=== PATIENT | male | born 1990 | race Caucasian/White ===

== ENCOUNTER 2019-11-09 13:35 | Outpatient (CLI) | payer MEDICAID, SELFPAY ==
[2019-11-09 14:50] LABS: Basophils # 0.1 10^3/uL (0.0-0.1); Basophils % 0.7 %; Eosinophils # 0.1 10^3/uL (0.0-0.8); Eosinophils % 1.4 %; Hematocrit 50.3 % (42.0-52.0); Hemoglobin 16.4 g/dL (11.7-16.6); Lymphocytes # 2.5 10^3/uL (0.8-4.8); Lymphocytes % 27.3 %; Mean Corpuscular HGB Conc 32.6 g/dL (30.0-36.0); Mean Corpuscular Hemoglobin 29.9 pg (28.0-34.0); Mean Corpuscular Volume 91.6 fL (80-94); Mean Platelet Volume 9.9 fL (7.4-10.4); Monocytes # 0.7 10^3/uL (0.2-0.9); Neutrophils # 5.6 10^3/uL (1.8-7.7); Neutrophils % 62.3 %; Nucleated Red Blood Cells % 0 %; Platelet Count 277 10^3/cmm (130-400); Red Blood Count 5.49 10^6/uL (4.1-5.3); Red Cell Distribution Width 12.2 % (12.1-15.1)
[2019-11-09 15:10] LABS: Amphetamines Screen Urine Negative (Negative); Barbiturates Screen Urine Negative (Negative); Benzodiazepines Screen Urine Negative (Negative); Cocaine Screen Urine Negative (Negative); Opiate Screen Urine Negative (Negative); PCP Screen Urine Negative (Negative); THC Screen Urine Positive (Negative)
[2019-11-09 15:37] LABS: Alanine Aminotransferase 22 U/L (0-41); Albumin Level 4.7 g/dL (3.5-5.2); Alkaline Phosphatase 109 IU/L (40-130); Anion Gap 16.2 (5-19); Aspartate Amino Transferase 22 U/L (0-40); Blood Urea Nitrogen 14 mg/dL (6-20); Calcium 10.4 mg/dL (8.5-10.5); Carbon Dioxide 27 mmol/L (22-29); Chloride 99 mmol/L (98-107); Chol HDL Ratio 3.29 mg/dL (1.0-5.00); Cholesterol 148 mg/dL (0-200); Globulin 3.4 g/dL (1.3-4.6); Glomerular Filtration Rate 78.6 mL/min (90-130); Glucose 72 mg/dL (65-115); HDL Cholesterol 45 mg/dL (60-100); LDL Cholesterol Calculated 83 mg/dL (50-129); LDL HDL Ratio 1.84 RATIO (0.00-3.22); Magnesium 2.2 mg/dL (1.7-2.3); Osmolality Calculated 281 mOsm/kg (285-295); Potassium 4.2 mmol/L (3.5-5.1); Sodium 138 mmol/L (136-145); Thyroid Stimulating Hormone 4.04 uIU/mL (0.27-4.20); Total Bilirubin 0.4 mg/dL (0.15-1.2); Total Protein 8.1 g/dL (6.6-8.7); Triglycerides 99 mg/dL (0-150); Vitamin B12 329 pg/mL (232-1245)
[2019-11-09 15:48] LABS: Folate Level 11.2 ng/mL (4.5-32.2)
[2019-11-09 16:07] LABS: 25 Hydroxy Vitamin D 75 ng/mL (30-100); Free T4 Free Thyroxine 1.15 ng/dL (0.82-1.77); T3 Free 3.7 PG/ML (2.0-4.4)
[2019-11-11 20:27] LABS: Copper Level 126 mcg/dL (70-175); Zinc Level, Serum or Plasma 73 mcg/dL (60-130)
== END 2019-11-09 13:36 | disposition home or self-care (01) ==
LOC: LAB 13:48
PROVIDERS: Visit Provider Psychiatry & Neurology Psychiatry
DX: E63.9 Nutritional deficiency, unspecified (principal); F06.30 Mood disorder due to known physiological condition, unspecified; F31.62 Bipolar disorder, current episode mixed, moderate; F41.1 Generalized anxiety disorder; F43.0 Acute stress reaction; G40.909 Epilepsy, unspecified, not intractable, without status epilepticus; S09.90XS Unspecified injury of head, sequela; X58.XXXS Exposure to other specified factors, sequela
CPT/HCPCS: 36415; 80053; 80061; 80306; 82306; 82525; 82607; 82746; 83735; 84439; 84443; 84481; 84630; 85025; 99205

== ENCOUNTER → 2019-11-23 08:02 | Outpatient (BNVA) | payer MEDICAID, SELFPAY | PROVIDERS: Visit Provider Nurse Practitioner Psychiatric/Mental Health | DX: F06.30 Mood disorder due to known physiological condition, unspecified (principal); S09.90XS Unspecified injury of head, sequela; F41.1 Generalized anxiety disorder; F43.0 Acute stress reaction; Z79.899 Other long term (current) drug therapy | CPT/HCPCS: 99213 ==

== ENCOUNTER → 2019-12-13 13:17 | Outpatient (BNVA) | payer MEDICAID, SELFPAY | PROVIDERS: Visit Provider Nurse Practitioner Psychiatric/Mental Health | DX: Z79.899 Other long term (current) drug therapy (principal) | CPT/HCPCS: 80306 ==

== ENCOUNTER → 2019-12-18 12:59 | Outpatient (BNVA) | payer MEDICAID, SELFPAY | PROVIDERS: Visit Provider Nurse Practitioner Psychiatric/Mental Health | DX: F06.30 Mood disorder due to known physiological condition, unspecified (principal); S09.90XS Unspecified injury of head, sequela; F41.9 Anxiety disorder, unspecified; Z79.899 Other long term (current) drug therapy | CPT/HCPCS: 80306; 99212 ==

== ENCOUNTER → 2020-01-15 07:46 | Outpatient (BNVA) | payer MEDICAID, SELFPAY | PROVIDERS: Visit Provider Nurse Practitioner Psychiatric/Mental Health | DX: Z79.899 Other long term (current) drug therapy (principal); F06.30 Mood disorder due to known physiological condition, unspecified; S09.90XS Unspecified injury of head, sequela; F41.9 Anxiety disorder, unspecified | CPT/HCPCS: 80306; 99213 ==

== ENCOUNTER 2020-04-10 14:58 | Emergency (ER) | payer MEDICAID, SELFPAY ==
[2020-04-10 15:02] VITALS: BP 127/85; PULSE 98; RESP 18; TEMP 36.7; O2SAT 98; BMI 20.3
--- NOTE | 2020-04-10 15:13 | CTR_ITS ---
PROCEDURE INFORMATION: Exam: CT Head Without Contrast Exam date and time: 04/10/2020 4:05 PM Age: 29 years old Clinical indication: Injury or trauma; Other: Boards fell on head; Blunt trauma (contusions or hematomas) TECHNIQUE: Imaging protocol: Computed tomography of the head without contrast. Axial, coronal and sagittal reformatted images were created and reviewed. Radiation optimization: All CT scans at this facility use at least one of these dose optimization techniques: automated exposure control; mA and/or kV adjustment per patient size (includes targeted exams where dose is matched to clinical indication); or iterative reconstruction. COMPARISON: No relevant prior studies available. RADIATION DOSE METRICS: Total DLP (mGy-cm): 755.84 FINDINGS: Brain: No CT evidence of acute intracranial hemorrhage or acute territorial infarction. No significant mass effect or midline shift. Basal cisterns patent. Cerebral ventricles: Normal in size and configuration. Bones/joints: No acute osseous abnormality. Paranasal sinuses: Mild ethmoid mucosal thickening. Moderate polypoid bilateral maxillary sinus mucosal thickening. Mastoid air cells: Grossly unremarkable. Soft tissues: Right parietal scalp margo. CT/CT head wo con* [id number]: 1[address] No [address] evidence of acute intracranial pathology. 2. Additional findings, as above. Radiation Dose CTDIVOL = (mGy): DLP = 755.84 (mGy-cm)
--- NOTE | 2020-04-10 15:13 | CTR_ITS ---
PROCEDURE INFORMATION: Exam: CT Cervical Spine Without Contrast Exam date and time: 04/10/2020 4:05 PM Age: 29 years old Clinical indication: Injury or trauma; Other: Boards fell on head; Blunt trauma TECHNIQUE: Imaging protocol: Computed tomography images of the cervical spine without contrast. Axial, coronal and sagittal reformatted images were created and reviewed. Radiation optimization: All CT scans at this facility use at least one of these dose optimization techniques: automated exposure control; mA and/or kV adjustment per patient size (includes targeted exams where dose is matched to clinical indication); or iterative reconstruction. COMPARISON: No relevant prior studies available. RADIATION DOSE METRICS: Total DLP (mGy-cm): 601.84 FINDINGS: Vertebrae: Normal cervical lordosis. Alignment anatomic. No CT evidence of acute fracture, dislocation or subluxation. Vertebral body heights maintained. Discs/Spinal canal/Neural foramina: Intervertebral disc spaces preserved. No significant spinal canal or neural foraminal stenosis. Soft tissues: Grossly unremarkable. Lungs: Biapical paraseptal emphysematous change. CT/CT cervical spin wo con* [id number] [address]: 1[address] No CT evidence of acute cervical spine traumatic injury. 2. Additional findings, as above. Radiation Dose CTDIVOL = (mGy): DLP = 601.84 (mGy-cm)
--- NOTE | 2020-04-10 15:19 | W.ED.HEATRA ---
HPI - Head Injury General: Chief complaint: Head Injury Stated complaint: HEAD INJURY Time Seen by Provider: 04/10/20 15:04 Source: patient Mode of arrival: ambulatory Limitations: no limitations History of Present Illness: HPI Narrative: Patient is a 29-year-old male who presents to ED today with complaints of a head injury. Patient states he was sawing ceiling beams when one was a loadbearing beam and fell onto his head. No LOC. Patient states he sustained a laceration to the right side of his scalp. He does not complain of a headache but is having some trouble thinking . He is answering all questions appropriately and is ambulatory without difficulty. in the room states he has been acting normally. He is also complaining of some neck pain. No other injuries at this time. Last tetanus is unknown. MD Complaint: head injury Onset (ago): hour(s) Arrival Conditions: C-spine immobilization present Place: home Loss of Consciousness: no Location of injury: parietal Radiation: none Other Injuries: other (neck pain) Associated symptoms: Reports confusion ( trouble thinking ) and neck pain; Deny nausea, vertigo or vomiting Review of Systems Const: Denies: fever(s), chills, body aches, fatigue or malaise Eyes: Denies: change in vision, blurry vision, photophobia, floaters or seeing flashes GI: Denies: nausea or vomiting Musc: Reports: neck pain; Denies: back pain, extremity pain or extremity swelling Skin/Breast: Reports: other (scalp laceration ) Neuro: Reports: confusion ( trouble thinking ); Denies: headache(s), numbness in extremities, weakness in extremities, sensory changes, lack of coordination, difficulty walking, dizziness, vertigo or Slurred speech present [facility] ED PFSH: Medical History (Updated 04/10/20 @ 16:59 by MARLO Balbuena) Anxiety disorder, unspecified Physical Exam Const: COMMON NORMALS: no acute distress, average body habitus, patient oriented x3, no limitations, healthy appearing, alert and well nourished ORIENTATION/CONSCIOUSNESS: Yes oriented to person, Yes oriented to place and Yes oriented to time HENMT: HEAD & SCALP: other (2 inch R parietal scalp laceration; no bleeding; no hematoma) FACE & SINUS: normal facial exam Neck/C-Spine: CERVICAL SPINE: Yes Cervical spine tenderness and No step off deformity OTHER: c-collar present; not removed for exam Chest: COMMONS NORMALS: normal inspection of the chest and normal palpation of entire chest wall Resp: COMMON NORMALS: normal respiratory effort and clear to auscultation bilaterally AUSCULTATION: clear to auscultation bilaterally Cardio: COMMON NORMALS: regular rate and regular rhythm RATE: regular rate RHYTHM: regular rhythm Back/Pelvis: COMMON NORMALS: thoracic and lumbar spine normal to inspection, no thoracic nor lumbar tenderness and thoraco-lumbar ROM normal Extremity: COMMON NORMALS: normal to inspection and full ROM GENERAL: Yes normal exam except as noted Neuro: LEE COMA SCALE: document GCS findings Lee coma scale eye opening: Spontaneous Lee coma scale verbal response: Orientated [place] coma scale motor response: Obey commands [place] coma scale total score: 15 COMMON NORMALS: patient oriented x3 SENSORIUM/ORIENTATION: Yes alert, Yes oriented to person, Yes oriented to place and Yes oriented to time Skin: NARRATIVE SKIN EXAM: scalp laceration; otherwise normal skin exam Procedures Laceration Laceration 1: Site: scalp Side (If applicable): right Size (cm): 6 Description: linear Depth: simple, single layer Local Anesthetic: lidocaine 1% and with epi Amount of anesthesia used (mL): 3.0 Pre-repair: wound explored and irrigated extensively Skin layer closed with: other (margo) Number of sutures: 9 Course Vital Signs: Vital signs: Vital Signs Temperature 98.0 F 04/10/20 15:02 Pulse Rate 98 04/10/20 15:02 Respiratory Rate 18 04/10/20 16:07 Blood Pressure 127/85 04/10/20 15:02 Pulse Oximetry 98 04/10/20 16:07 MDM - Head Injury Imaging Data^: CT Head: Radiologist's impression: [address] [address] [address] Scan Report Signed Patient: Valentino Taveras Unit #: [id number] : 1990 Age/Sex: 29 / M ADM Date: 04/10/20 Loc: ER Room/Bed: Attending Dr: Ordering Provider/Ordering MD: Alis Padgett Date of Service: 04/10/20 Procedure(s): CT head wo con* [id number] Accession Number(s): [id number] Report Number: [id number] PROCEDURE INFORMATION: Exam: CT Head Without Contrast Exam date and time: 04/10/2020 4:05 PM Age: 29 years old Clinical indication: Injury or trauma; Other: Boards fell on head; Blunt trauma (contusions or hematomas) TECHNIQUE: Imaging protocol: Computed tomography of the head without contrast. Axial, coronal and sagittal reformatted images were created and reviewed. Radiation optimization: All CT scans at this facility use at least one of these dose optimization techniques: automated exposure control; mA and/or kV adjustment per patient size (includes targeted exams where dose is matched to clinical indication); or iterative reconstruction. COMPARISON: No relevant prior studies available. RADIATION DOSE METRICS: Total DLP (mGy-cm): 755.84 FINDINGS: Brain: No CT evidence of acute intracranial hemorrhage or acute territorial infarction. No significant mass effect or midline shift. Basal cisterns patent. Cerebral ventricles: Normal in size and configuration. Bones/joints: No acute osseous abnormality. Paranasal sinuses: Mild ethmoid mucosal thickening. Moderate polypoid bilateral maxillary sinus mucosal thickening. Mastoid air cells: Grossly unremarkable. Soft tissues: Right parietal scalp margo. CT/CT head wo con* [id number] [address]PRESSION: 1. No CT evidence of acute intracranial pathology. 2. Additional findings, as above. Radiation Dose CTDIVOL = (mGy): DLP = 755.84 (mGy-cm) Dictated By: Nino Cassidy MD Signed By: Nino Cassidy MD Signed Date/Time: 04/10/201641 DD/ 1641 CT cervical: Radiologist's impression: [address] [address] [address] Scan Report Signed Patient: Valentino Taveras Unit #: [id number] : 1990 Age/Sex: 29 / M ADM Date: 04/10/20 Loc: ER Room/Bed: Attending Dr: Ordering Provider/Ordering MD: Alis Padgett Date of Service: 04/10/20 Procedure(s): CT cervical spin wo con* [id number] Accession Number(s): [id number] Report Number: [id number] PROCEDURE INFORMATION: Exam: CT Cervical Spine Without Contrast Exam date and time: 04/10/2020 4:05 PM Age: 29 years old Clinical indication: Injury or trauma; Other: Boards fell on head; Blunt trauma TECHNIQUE: Imaging protocol: Computed tomography images of the cervical spine without contrast. Axial, coronal and sagittal reformatted images were created and reviewed. Radiation optimization: All CT scans at this facility use at least one of these dose optimization techniques: automated exposure control; mA and/or kV adjustment per patient size (includes targeted exams where dose is matched to clinical indication); or iterative reconstruction. COMPARISON: No relevant prior studies available. RADIATION DOSE METRICS: Total DLP (mGy-cm): 601.84 FINDINGS: Vertebrae: Normal cervical lordosis. Alignment anatomic. No CT evidence of acute fracture, dislocation or subluxation. Vertebral body heights maintained. Discs/Spinal canal/Neural foramina: Intervertebral disc spaces preserved. No significant spinal canal or neural foraminal stenosis. Soft tissues: Grossly unremarkable. Lungs: Biapical paraseptal emphysematous change. CT/CT cervical spin wo con* [id number]PRESSION: 1. No CT evidence of acute cervical spine traumatic injury. 2. Additional findings, as above. Radiation Dose CTDIVOL = (mGy): DLP = 601.84 (mGy-cm) Dictated By: Nino Cassidy MD Signed By: Nino Cassidy MD Signed Date/Time: 04/10/201644 DD/ 43 Discharge Plan Discharge Patient Disposition: Home Clinical Impression: Minor closed head injury Laceration of scalp Qualifiers: Encounter type: initial encounter Qualified Code(s): S01.01XA - Laceration without foreign body of scalp, initial encounter Condition: Stable Prescriptions: No Action No Known Home Medications RF: 0 Discharge Orders: Discharge Order (Routine); Ordered 04/10/20 Ordered By: Alis Padgett Referrals: Reba Taveras APN [Primary Care Provider] - Patient Instructions: Scalp Laceration, Laceration (ED), Staple Care (ED) Activity Restrictions/Additional Instructions: Keep laceration clean with warm soapy water. Sutures may be removed in 1 week. 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
[2020-04-10 16:07] VITALS: RESP 18; O2SAT 98
[2020-04-10] MEDS: morphine 4 mg/mL SDV 1 mL IM (16:07)
[2020-04-10] MEDS: tetanus-diphtheria tox (adult) 0.5 mL SDV IM (16:48)
[2020-04-10 17:41] VITALS: BP 152/74; PULSE 68; RESP 18; O2SAT 99
== END 2020-04-10 17:47 | disposition home or self-care (01) ==
PROVIDERS: Emergency Provider Physician Assistant; PCP Nurse Practitioner Family
DX: S01.01XA Laceration without foreign body of scalp, initial encounter (principal); S09.8XXA Other specified injuries of head, initial encounter; W20.8XXA Other cause of strike by thrown, projected or falling object, initial encounter; Z23 Encounter for immunization
CPT/HCPCS: 12002; 12345; 70450; 72125; 90471; 90714; 96372; 99281; 99283; J2270

== ENCOUNTER 2023-01-08 19:36 | Emergency (ER) | payer MEDICAID, SELFPAY ==
[2023-01-08 19:46] VITALS: BP 106/65; PULSE 58; RESP 16; TEMP 36.7; O2SAT 98; BMI 16.9
--- NOTE | 2023-01-08 21:05 | XRR_ITS ---
PROCEDURE INFORMATION: Exam: XR Right Knee Exam date and time: 01/08/2023 9:56 PM Age: 32 years old Clinical indication: Injury or trauma; Fall; Blunt trauma; Knee; Right; Additional info: Knee pain after fall TECHNIQUE: Imaging protocol: Radiologic exam of the right knee. Views: 3 views. COMPARISON: No relevant prior studies available. FINDINGS: Bones/joints: No acute fracture or dislocation. Soft tissues: Grossly unremarkable. XR/XR knee RT 3V* [id number] IMPRESSION: No acute findings.
--- NOTE | 2023-01-08 21:05 | XRR_ITS ---
PROCEDURE INFORMATION: Exam: XR Right Foot Exam date and time: 01/08/2023 9:56 PM Age: 32 years old Clinical indication: Injury or trauma; Fall; Blunt trauma; Foot; Right; Additional info: Foot pain after fall TECHNIQUE: Imaging protocol: Radiologic exam of the right foot. Views: 3 or more views. COMPARISON: No relevant prior studies available. FINDINGS: Bones/joints: No acute fracture or dislocation. Soft tissues: Grossly unremarkable. XR/XR foot RT min 3V* [id number] IMPRESSION: No acute findings.
--- NOTE | 2023-01-08 21:05 | XRR_ITS ---
PROCEDURE INFORMATION: Exam: XR Left Ribs with PA Chest Exam date and time: 01/08/2023 10:02 PM Age: 32 years old Clinical indication: Injury or trauma; Fall; Rib area, left side; Blunt trauma; Additional info: Left rib pain after fall TECHNIQUE: Imaging protocol: Radiologic exam of the left ribs with PA chest. Views: 3 views COMPARISON: CT cervical spin wo con* [id number] 04/10/2020 4:12 PM FINDINGS: Lungs: No consolidation. Right midlung granulomas. Biapical blebs (right greater than left). Pleural spaces: No pleural effusion. No pneumothorax. Heart/Mediastinum: No cardiomegaly. Bones/joints: No acute fracture. XR/XR ribs LT mn 3V w CXR1V [id number] IMPRESSION: No acute findings.
--- NOTE | 2023-01-08 21:06 | W.ED.TRAUMA ---
HPI - Trauma General: Chief Complaint: Trauma Stated Complaint: fall / left side pain Time Seen by Provider: 01/08/23 20:58 History of Present Illness: Patient is a 32-year-old male comes to the ED with left rib and right knee pain after fall. Fall occurred around 1 PM today. He says he was up on a ladder approximately 10 feet in the air and he fell. He was using a film washer hose and he says that left side of his ribs landed against the handle part of film washer gun. He has localized left rib pain and tenderness that he rates currently 9 out of 10. Any deep breath causes worsening pain. He also is having right knee pain and swelling as well. The pain is located on the medial aspect of the knee. His other injured area is the top of his right foot. He says that the pain in his foot is very mild but he does have some swelling and bruising noted there as well. He is able to ambulate on right leg without any difficulty. Denies any head trauma or loss of consciousness. Denies any headache, vision changes or any neurological symptoms. He has not had anything for pain before coming to the ED. Associated symptoms: Denies abdominal pain, back pain, chest pain, chills, fever(s), headache(s), nausea or vomiting Review of Systems Const: Denies: fever(s), chills or fatigue Eyes: Denies: change in vision or eye discomfort ENMT: Denies: throat pain, odynophagia, nasal discharge or nasal congestion Card: Denies: chest pain, palpitations, edema, swelling of feet/ankles, dyspnea on exertion or orthopnea Resp: Denies: dyspnea, productive cough or non-productive cough GI: Denies: abdominal pain, nausea, vomiting, diarrhea, constipation or hematochezia : Denies: flank pain, difficulty urinating, dysuria or hematuria Musc: Reports: extremity pain (Right knee and right foot), extremity swelling (Right knee and right foot) and other (Left rib pain); Denies: neck pain or back pain Skin/Breast: Denies: rash or new lesions Neuro: Denies: headache(s), numbness in extremities or weakness in extremities [facility] ED PFSH: Medical History (Updated 01/08/23 @ 23:21 by MARLO Villalta) Anxiety disorder, unspecified Surgical History (Updated 01/09/23 @ 01:34 by MARLO Villalta) No pertinent past surgical history Physical Exam Const: COMMON NORMALS: no acute distress, patient oriented x3 and alert HENMT: COMMON NORMALS: normocephalic HEAD & SCALP: normocephalic MOUTH: Normal oral and palatal mucosa present THROAT: posterior oropharynx normal and uvula midline Eye: COMMON NORMALS: Equal, round and reactive pupils present and EOMs intact bilaterally GENERAL EYE: appearance normal, both eyes and all related structures PUPIL: Yes Equal, round and reactive pupils present Neck/C-Spine: COMMON NORMALS: supple GENERAL: Yes normal visual inspection Lymph: LYMPHATIC: no lymphadenopathy noted Chest: CHEST: Yes tenderness rib left mid-axillary line involving the 7th rib, involving the 8th rib and involving the 9th rib Resp: COMMON NORMALS: normal respiratory effort, No retractions, No use of accessory muscles and clear to auscultation bilaterally AUSCULTATION: clear to auscultation bilaterally Cardio: COMMON NORMALS: regular rate, regular rhythm, S1 normal heart sound present, S2 normal heart sound present, No gallops present (Cardio), No clicks present (Cardio), No murmurs present (Cardio) and Peripheral pulses 2+ throughout RATE: regular rate RHYTHM: regular rhythm HEART SOUNDS: S1 normal heart sound present and S2 normal heart sound present PERIPHERAL PULSES: Peripheral pulses 2+ throughout GI: COMMON NORMALS: Normal to inspection, nondistended, normoactive bowel sounds present, Soft to palpation, non-tender and no masses PALPATION: Yes Soft to palpation : COMMON NORMALS: Yes no CVA tenderness BLADDER/KIDNEY EXAM: Yes no CVA tenderness Back/Pelvis: COMMON NORMALS: no CVA tenderness Extremity: NARRATIVE EXTREMITY EXAM: Right knee?visible swelling seen in medial aspect of knee along with tenderness. Full range of motion. Neurovascular tact distally. Right foot?some mild ecchymosis and swelling seen in the midfoot region. No visible deformity seen. Neurovascular intact distally. GENERAL: Yes normal exam except as noted Neuro: COMMON NORMALS: patient oriented x3, CN's II-XII intact bilaterally, moves all extremities, no focal motor deficits and no sensory deficits noted SENSORIUM/ORIENTATION: Yes alert SENSORY EXAM: Yes extremities (intact) MOTOR EXAM: 5/5 motor strength present throughout Skin: COMMON NORMALS: no rashes or lesions noted GENERAL SKIN EXAM: no rashes or lesions noted and dry skin Course Vital Signs: Vital signs: Vital Signs Temperature 98.0 F 01/08/23 19:46 Pulse Rate 47 L 01/08/23 22:58 Respiratory Rate 16 01/08/23 22:58 Blood Pressure 120/78 01/08/23 22:58 Pulse Oximetry 99 01/08/23 22:58 Oxygen Delivery Me thod Room Air 01/08/23 22:58 MDM - Trauma Medical Decision Making Patient is a 32-year-old male comes to the ED with left rib and right knee pain after fall. Fall occurred around 1 PM today. He says he was up on a ladder approximately 10 feet in the air and he fell. He was using a film washer hose and he says that left side of his ribs landed against the handle part of film washer gun. He has localized left rib pain and tenderness that he rates currently 9 out of 10. Any deep breath causes worsening pain. He also is having right knee pain and swelling as well. The pain is located on the medial aspect of the knee. His other injured area is the top of his right foot. He says that the pain in his foot is very mild but he does have some swelling and bruising noted there as well. He is able to ambulate on right leg without any difficulty. Denies any head trauma or loss of consciousness. Denies any headache, vision changes or any neurological symptoms. He has not had anything for pain before coming to the ED. vitals are stable. Neuro exam showed no deficits. Patient appears nontoxic and in no acute distress or pain. He does have some left side rib tenderness. Lungs are clear to auscultation bilaterally.Right knee?visible swelling seen in medial aspect of knee along with tenderness. Full range of motion. Neurovascular tact distally.Right foot?some mild ecchymosis and swelling seen in the midfoot region. No visible deformity seen. Neurovascular intact distally. Right foot x-ray, right knee x-ray and left ribs x-ray all showed no acute fractures or findings. Patient was given a pain med here in the ED and I did improve his pain. He was diagnosed with rib pain on left side and right knee pain. Told to follow-up with his PCP in the next week for reevaluation. He was sent home with a prescription for NSAID, a couple hydrocodone and muscle relaxer. Return ED precautions given. Patient understood and agreed with plan Lab Data Radiology Impressions Foot X-Ray 01/08/23 21:05 IMPRESSION: No acute findings. Knee X-Ray 01/08/23 21:05 IMPRESSION: No acute findings. Ribs X-Ray 01/08/23 21:05 IMPRESSION: No acute findings. Discharge Plan Discharge Patient Disposition: Home Clinical Impression: Rib pain on left side, Knee pain, right Condition: Stable Prescriptions: New ibuprofen 800 mg tablet 800 mg PO Q8H PRN (Reason: pain) Qty: 20 0RF cyclobenzaprine 10 mg tablet 10 mg PO BID PRN (Reason: muscle spasm) Qty: 20 0RF No Action varenicline [Chantix Starting Month Box] 0.5 mg (11)- 1 mg (42) tablets,dose pack See Rx Instructions PO PER PKG DIR Qty: 53 0RF Rx Instructions: PO PER PKG DIR Discharge Orders: Discharge ED (Routine); Ordered 01/08/23 Ordered By: Naeem Diaz Discharge Diet: Regular Discharge Activity: Use walker/crutches as instructed Patient Instructions: Opioid Safety Activity Restrictions/Additional Instructions: Follow-up with medical provider as directed in the next 7 days. Rest, ice and elevate right knee to help with symptoms. Use crutches and limit weightbearing for the next 2 to 3 days then slowly advance weightbearing as tolerated. Take medications as prescribed. Return to the ER or your medical provider if condition worsens. Please read and understand discharge instructions. Thank you for choosing [facility] for your healthcare needs today. Please realize this is an emergency room and that we are providing you with a medical screening exam and this may not be complete and all inclusive of all the testing and or work up that you may need to determine your ailment or severity of your illness. It is very important that you follow up as instructed or that you return to the Emergency Department should you have concerns or if your condition changes or worsens in any way. 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
[2023-01-08 21:08] VITALS: BP 122/65; PULSE 50; RESP 16; O2SAT 97
[2023-01-08] MEDS: morphine 4 mg/mL SDV 1 mL IM (21:36)
[2023-01-08 22:58] VITALS: BP 120/78; PULSE 47; RESP 16; O2SAT 99
[2023-01-08] MEDS: HYDROcodone-acetaminophen 7.5-325 mg Tablet 1 TAB PO (23:34)
== END 2023-01-08 23:36 | disposition home or self-care (01) ==
PROVIDERS: Emergency Provider Physician Assistant
DX: R07.81 Pleurodynia (principal); M25.561 Pain in right knee
CPT/HCPCS: 71101; 73562; 73630; 96372; 99284; E0114; J2270

== ENCOUNTER 2024-03-18 10:02 | Emergency (ER) | payer MEDICAID, SELFPAY ==
[2024-03-18 10:24] VITALS: BP 118/61; PULSE 50; RESP 18; TEMP 36.7; O2SAT 98; BMI 17.6
[2024-03-18 11:13] VITALS: BP 111/78; PULSE 49; RESP 16; O2SAT 98
--- NOTE | 2024-03-18 11:15 | ED_ITS ---
HPI - Extremity Problem 2 General: Chief complaint: Extremity Problem,Nontraumatic Stated complaint: right leg swell & Pain, passing blood w/bowel move Time Seen by Provider: 03/18/24 10:50 History of Present Illness: 33-year-old male presents emergency room complaining of right leg pain and swelling as well as passing blood with bowel movements. Leg discomfort is new within the last week. No trauma. No previous history of DVT no chest pain or shortness of breath is not on any anticoagulants. He has been able to bear weight. Has not noticed anything that aggravates or relieves his symptoms Patient has bloody bowel movements this been going on for over a year has not really changed. He has not been seen or evaluated for it. He has not noted anything that aggravates or relieves it Associated symptoms: Deny chest pain, fever(s) or rash Related Data Previous Rx's Medication Instructions Recorded varenicline 0.5 mg (11)-1 mg (42) See Rx Instructions PO PER PKG DIR 09/27/22 tablets in a dose pack ([employer] #53 ea Starting Month Box) cyclobenzaprine 10 mg tablet 10 mg PO BID PRN muscle spasm #20 01/08/23 tabs diclofenac sodium 75 mg 75 mg PO Q12H PRN pain #20 tabs 03/18/24 tablet,delayed release Allergies Allergy/AdvReac Type Severity Reaction Status Date / Time tramadol Allergy Severe Siezures Verified 05/30/23 10:34 Review of Systems 2 Const: Denies: fever(s) or chills Card: Denies: chest pain Resp: Denies: dyspnea GI: Reports: hematochezia; Denies: abdominal pain : Denies: dysuria, urinary frequency or urinary urgency Musc: Reports: extremity pain; Denies: neck pain or back pain Skin/Breast: Denies: rash PFSH ED 2 PFSH: Medical History Anxiety disorder, unspecified Surgical History No pertinent past surgical history Physical Exam 2 Const: GENERAL APPEARANCE: cooperative ORIENTATION/CONSCIOUSNESS: Yes awake, Yes oriented to person, Yes oriented to place and Yes oriented to time HENMT: COMMON NORMALS: normocephalic, atraumatic and hearing grossly normal bilaterally HEAD & SCALP: normocephalic and atraumatic Resp: COMMON NORMALS: normal respiratory effort, No retractions, No use of accessory muscles and clear to auscultation bilaterally AUSCULTATION: clear to auscultation bilaterally Cardio: COMMON NORMALS: regular rate, regular rhythm and No murmurs present (Cardio) RATE: regular rate RHYTHM: regular rhythm GI: COMMON NORMALS: Soft to palpation and No hepatosplenomegaly present A USCULTATION: Yes normoactive bowel sounds PALPATION: Yes Soft to palpation, No Tenderness to palpation present (GI), No Guarding due to palpation present (GI) and Yes No hepatosplenomegaly present Extremity: COMMON NORMALS: capillary refill normal, no clubbing, cyanosis or edema, no calf tenderness and no pedal edema OTHER: Mild tenderness over the lower extremity and medial thigh. Neuro: SENSORIUM/ORIENTATION: Yes oriented to person, Yes oriented to place and Yes oriented to time Skin: COMMON NORMALS: no rashes or lesions noted GENERAL SKIN EXAM: no rashes or lesions noted Course 2 Vital Signs: Vital signs: Vital Signs Temperature 98.0 F 03/18/24 10:24 Pulse Rate 54 L 03/18/24 12:42 Respiratory Rate 14 03/18/24 12:42 Blood Pressure 122/77 03/18/24 12:42 Pulse Oximetry 98 03/18/24 12:42 Oxygen Delivery Me thod Room Air 03/18/24 11:13 MDM - Extremity (Nontraumatic) Medical Decision Making Superficial thrombophlebitis noted on venous duplex. Anti-inflammatories and elevate moist heat to the area. Reviewed findings with patient no indication for anticoagulation. Discharge patient home. History of warts of rectal bleeding intermittent for over a year his hemoglobin is actually slightly elevated. His indices are abnormal he is not having any at this time. Will discharge the patient home and have him follow-up with outpatient surgery for further evaluation. Medical Records I reviewed the patient's medical records. Lab Data I reviewed the patient's lab results. 03/18/24 11:26 03/18/24 11:26 Radiology Impressions Venous Duplex 03/18/24 11:21 IMPRESSION: 1. No evidence of deep vein thrombosis. 2. Superficial thrombophlebitis right greater saphenous vein Laboratory Results WBC 10.06 10^3/uL (3.29-11.43) 03/18/24 11:26 RBC 5.52 10^6/uL (3.85-5.65) 03/18/24 11:26 Hgb 17.00 g/dL (11.27-16.99) H 03/18/24 11:26 Hct 49.9 % (37-53) 03/18/24 11:26 MCV 90.4 fl (82-101) 03/18/24 11:26 MCH 30.8 pg (27-33) 03/18/24 11:26 MCHC 34.1 g/dL (30-55) 03/18/24 11:26 RDW 12.2 % (12.1-15.1) 03/18/24 11:26 Plt Count 268 10^3/cmm (157-399) 03/18/24 11:26 MPV 9.5 fL (7.4-10.4) 03/18/24 11:26 Neut % (Auto) 67.9 % 03/18/24 11:26 Lymph % (Auto) 23.3 % 03/18/24 11:26 [place] % (Auto) 6.4 % 03/18/24 11:26 Eos % (Auto) 1.5 % 03/18/24 11:26 Baso % (Auto) 0.6 % 03/18/24 11:26 Neut # (Auto) 6.84 10^3/uL (1.8-7.7) 03/18/24 11:26 Lymph # (Auto) 2.3 10^3/uL (0.8-4.8) 03/18/24 11:26 Baldwin # (Auto) 0.6 10^3/uL (0.2-0.9) 03/18/24 11:26 Eos # (Auto) 0.2 10^3/uL (0.0-0.8) 03/18/24 11:26 Baso # (Auto) 0.1 10^3/uL (0.0-0.1) 03/18/24 11:26 Nucleated RBC % (auto) 0 % 03/18/24 11:26 Nucleated RBCs # 0.0 /100WBC 03/18/24 11:26 D-Dimer 0.50 ug/mLFEU (0-0.59) 03/18/24 11:26 Sodium 138 mmol/L (136-145) 03/18/24 11:26 Potassium 4.9 mmol/L (3.5-5.1) 03/18/24 11:26 Chloride 100 mmol/L (98-107) 03/18/24 11:26 Carbon Dioxide 28 mmol/L (22-29) 03/18/24 11:26 Anion Gap 14.9 (5-19) 03/18/24 11:26 BUN 8 mg/dL (6-20) 03/18/24 11:26 Creatinine 0.9 mg/dL (0.7-1.2) 03/18/24 11:26 GFR Calculation 96.6 mL/min (90-130) 03/18/24 11:26 Glucose 85 mg/dL (65-115) 03/18/24 11:26 Calculated Osmolality 284 mOsm/kg (285-295) L 03/18/24 11:26 Calcium 9.3 mg/dL (8.5-10.5) 03/18/24 11:26 Total Bilirubin 0.5 mg/dL (0.15-1.2) 03/18/24 11:26 AST 18 U/L (0-40) 03/18/24 11:26 ALT 11 U/L (0-41) 03/18/24 11:26 Alkaline Phosphatase 110 U/L (40-130) 03/18/24 11:26 C-Reactive Protein 3.0 mg/L (0.0-4.9) 03/18/24 11:26 Total Protein 7.5 g/dL (6.6-8.7) 03/18/24 11:26 Albumin 4.6 g/dL (3.5-5.2) 03/18/24 11:26 Globulin 2.9 g/dL (1.3-4.6) 03/18/24 11:26 All radiology interpretation(s) finalized by discharge Discharge Plan Discharge Patient Disposition: Home Clinical Impression: Superficial thrombophlebitis, Hematochezia Condition: Stable Prescriptions: New diclofenac sodium 75 mg tablet,delayed release (DR/EC) 75 mg PO Q12H PRN (Reason: pain) Qty: 20 0RF Discontinued ibuprofen 800 mg tablet 800 mg PO Q8H PRN (Reason: pain) Qty: 20 0RF No Action varenicline [Chantix Starting Month Box] 0.5 mg (11)- 1 mg (42) tablets,dose pack See Rx Instructions PO PER PKG DIR Qty: 53 0RF Rx Instructions: PO PER PKG DIR cyclobenzaprine 10 mg tablet 10 mg PO BID PRN (Reason: muscle spasm) Qty: 20 0RF Discharge Orders: Discharge ED (Routine); Ordered 03/18/24 Ordered By: Kip Worthy Discharge Diet: Usual diet Discharge Activity: Increase activity as tolerated Patient Instructions: Opioid Safety, Pain Management Activity Restrictions/Additional Instructions: Thank you for choosing [facility] for your healthcare needs today. It is very important that you follow up as instructed or that you return to the Emergency Department should you have concerns or if your condition changes or worsens in any way. Patient emergency room for leg pain on ultrasound and found a superficial thrombophlebitis she can apply moist heat to this area and use anti- inflammatories as prescribed. As the rectal bleeding been having for over a year your hemoglobin was normal. Would recommend that you follow-up with the general surgeon for further evaluation including possible endoscopy. Case management will call make arrangements for that referral. Coding Level of Care Code ED Envelope Stamping Machine Operator for Eric Mariano
--- NOTE | 2024-03-18 11:21 | USR_ITS ---
PROCEDURE INFORMATION: Exam: US Duplex Right Lower Extremity Veins, Limited Exam date and time: 03/18/2024 11:56 AM Age: 33 years old Clinical indication: Pain; Leg, lower; Right; Additional info: Pain swelling R lower leg TECHNIQUE: Imaging protocol: Real-time duplex ultrasound of the right extremity with 2-D hodges scale, color Doppler flow and spectral waveform analysis including responses to compression and other maneuvers (when performed) with image documentation. Limited exam was focused on the right lower extremity veins. COMPARISON: CR XR foot RT min 3V* [id number] 01/08/2023 9:56 PM FINDINGS: Right deep veins: Unremarkable. The common femoral, femoral, proximal profunda femoral and popliteal veins are patent without thrombus. Normal Doppler waveforms. Normal compressibility and/or augmentation response. Superficial veins: Greater saphenous vein shows diffuse intraluminal thrombus corresponding to acute superficial thrombophlebitis. Soft tissues: Unremarkable. US/[place] [id number] IMPRESSION: 1. No evidence of deep vein thrombosis. 2. Superficial thrombophlebitis right greater saphenous vein
[2024-03-18 11:32] LABS: Basophils # 0.1 10^3/uL (0.0-0.1); Basophils % 0.6 %; Eosinophils # 0.2 10^3/uL (0.0-0.8); Eosinophils % 1.5 %; Hematocrit 49.9 % (37-53); Lymphocytes # 2.3 10^3/uL (0.8-4.8); Lymphocytes % 23.3 %; Mean Corpuscular HGB Conc 34.1 g/dL (30-55); Mean Corpuscular Hemoglobin 30.8 pg (27-33); Mean Corpuscular Volume 90.4 fl (82-101); Mean Platelet Volume 9.5 fL (7.4-10.4); Monocytes # 0.6 10^3/uL (0.2-0.9); Monocytes % 6.4 %; Neutrophils # 6.84 10^3/uL (1.8-7.7); Neutrophils % 67.9 %; Nucleated Red Blood Cells % 0 %; Platelet Count 268 10^3/cmm (157-399); Red Blood Count 5.52 10^6/uL (3.85-5.65); Red Cell Distribution Width 12.2 % (12.1-15.1); White Blood Count 10.06 10^3/uL (3.29-11.43)
[2024-03-18 11:48] LABS: Alanine Aminotransferase 11 U/L (0-41); Albumin Level 4.6 g/dL (3.5-5.2); Alkaline Phosphatase 110 U/L (40-130); Anion Gap 14.9 (5-19); Aspartate Amino Transferase 18 U/L (0-40); Blood Urea Nitrogen 8 mg/dL (6-20); Calcium 9.3 mg/dL (8.5-10.5); Carbon Dioxide 28 mmol/L (22-29); Chloride 100 mmol/L (98-107); Creatinine Clr Calc Pharmacy 96.4584; Globulin 2.9 g/dL (1.3-4.6); Glomerular Filtration Rate 96.6 mL/min (90-130); Glucose 85 mg/dL (65-115); Osmolality Calculated 284 mOsm/kg (285-295); Potassium 4.9 mmol/L (3.5-5.1); Sodium 138 mmol/L (136-145); Total Bilirubin 0.5 mg/dL (0.15-1.2); Total Protein 7.5 g/dL (6.6-8.7)
[2024-03-18 12:42] VITALS: BP 122/77; PULSE 54; RESP 14; O2SAT 98
--- NOTE | 2024-03-20 07:31 | DCPLANNER ---
messaged gen surg for er f/u
== END 2024-03-18 12:42 | disposition home or self-care (01) ==
PROVIDERS: Emergency Medicine; Emergency Provider Family Medicine
DX: I80.01 Phlebitis and thrombophlebitis of superficial vessels of right lower extremity (principal); K92.1 Melena
CPT/HCPCS: 36415; 80053; 85025; 85378; 86140; 93971; 99284; 99291

== ENCOUNTER 2024-04-25 09:26 | Emergency (ER) | payer MEDICAID, SELFPAY ==
[2024-04-25 09:44] VITALS: BP 125/80; PULSE 67; RESP 18; TEMP 36.8; O2SAT 99; BMI 18.1
--- NOTE | 2024-04-25 10:02 | CT_ITS ---
WS: [id number] CT ABDOMEN AND PELVIS WITH CONTRAST HISTORY: lower abdominal/back pain, cramping TECHNIQUE: Imaging performed of the abdomen and pelvis with IV contrast. Single phase imaging of the abdomen. Coronal and sagittal reformats are submitted. All CT scans at [facility] use at [address] one of these dose optimization techniques: automated exposure control; mA and/or kV adjustment per patient size (includes targeted exams where dose is matched to clinical indication); or iterative re construction. IV CONTRAST: Omnipaque 350; 100 mL IV. Oral contrast: Yes. DLP: 357.93 mGy.cm COMPARISON: None available. Lower thorax: Granuloma RIGHT lung base. Heart is normal size. No hiatal hernia. Liver/biliary system: Normal size liver. Focal fatty sparing along the falciform ligament. No bile du ct dilatation. Gallbladder: Normal. No gallstones or wall thickening. No pericholecystic fluid. Pancreas: Normal size pancreas and pancreatic duct. No adjacent inflammation. Spleen: Normal size spleen. No mass or infarct. Adrenal glands: Normal. Right kidney: Normal. Left kidney: Normal. Aorta: Normal. Lymphadenopathy: None. Free fluid: None. GI tract: Normal stomach. Increased fluid in the small bowel. There is very mild small bowel wall thi ckening with submucosal edema. The appendix is normal. There is additional submucosal edema involving the transverse colon. No obstructive pattern. Abdominal wall: Unremarkable abdominal wall. No hernia. Pelvis: No free fluid or adenopathy within the pelvis. Bones: Unremarkable. CT/CT abdomen pelvis w con* [id number] IMPRESSION: 1. Mild increased fluid in the mid small bowel with wall thickening. No obstru ctive pattern. Additional mild submucosal edema in a segment of the transverse colon. Findings are most likely due to acute enterocolitis. Consider infectious or inflammatory etiologies. 2. The appendix is normal. 3. There is no ascites. 4. No renal obstruction.
--- NOTE | 2024-04-25 10:03 | W.ED.ABDPA2 ---
HPI - Abdominal Pain General: Chief Complaint: Abdominal Pain Stated Complaint: abd pain, lower back pain Time Seen by Provider: 04/25/24 09:27 Source: patient Mode of arrival: ambulatory Limitations: no limitations History of Present Illness: Patient is a 33-year-old male who presents to ED today with a complaint of lower abdominal pain and cramping as well as back pain. Patient states symptoms started around 6 AM this morning. He states he has never had anything like this before however later tells me he has. He states he has had hematochezia over the past year. He has recently been evaluated by general surgery for this and has a colonoscopy scheduled on 05/08. He has not noticed any recent changes to his bowel movements. No fevers. He has not had any vomiting. Denies any recent poor food exposures. MD elicited complaint: abdominal pain Pertinent past history: none Onset (ago): hour(s) Pain Consistency: constant Severity: severe Quality: cramping Radiation: back Migration to: no migration Exacerbating factors: nothing Relieving factors: nothing Associated Symptoms: Reports GI cramping and hematochezia; Denies chills, diarrhea, dysuria, fever(s), melena, nausea and vomiting Related Data Home Medications Medication Instructions Recorded Confirmed No Known Home Medications 04/25/24 04/25/24 Allergies Allergy/AdvReac Type Severity Reaction Status Date / Time tramadol Allergy Severe Siezures Verified 05/30/23 10:34 Review of Systems Const: Denies: fever(s), chills, body aches, fatigue or malaise Card: Denies: chest pain Resp: Denies: dyspnea GI: Reports: abdominal pain, GI cramping and hematochezia; Denies: nausea, vomiting, diarrhea or melena : Denies: flank pain, difficulty urinating, dysuria, urinary frequency, urinary urgency or urinary hesitancy Musc: Reports: back pain; Denies: neck pain, extremity pain, extremity swelling, joint pain or joint swelling Skin/Breast: Denies: rash Neuro: Denies: headache(s), numbness in extremities, weakness in extremities, sensory changes or dizziness PFS ED PFSH: Medical History Anxiety disorder, unspecified Surgical History No pertinent past surgical history Family History Mother Cancer unknown Grandfather Cancer Heart disease Father Diabetes Social History Smoking and tobacco/nicotine status: current every day tobacco/nicotine user cigarettes Alcohol intake: never Physical Exam Const: COMMON NORMALS: average body habitus, patient oriented x3, no limitations, healthy appearing, alert and well nourished GENERAL APPEARANCE: cooperative and in distress (appears uncomfortable at times holding his lower abdomen) Neck/C-Spine: COMMON NORMALS: no meningeal signs Resp: COMMON NORMALS: normal respiratory effort and clear to auscultation bilaterally AUSCULTATION: clear to auscultation bilaterally Cardio: COMMON NORMALS: regular rate and regular rhythm RATE: regular rate RHYTHM: regular rhythm GI: COMMON NORMALS: Normal to inspection, nondistended, normoactive bowel sounds present, Soft to palpation, No hepatosplenomegaly present and no masses INSPECTION: Yes normal to inspection AUSCULTATION: Yes normoactive bowel sounds PALPATION: Yes Soft to palpation, Yes Tenderness to palpation present (GI) (across lower abdomen), Yes Guarding due to palpation present (GI), No Rigid due to palpation and Yes No hepatosplenomegaly present : COMMON NORMALS: Yes no CVA tenderness BLADDER/KIDNEY EXAM: Yes no CVA tenderness Back/Pelvis: COMMON NORMALS: no CVA tenderness LUMBAR SPINE/LOWER BACK: Yes normal to inspection, Yes lumbar ROM normal, Yes lumbar spinal tenderness and Yes paraspinal muscle tenderness PELVIS: Yes buttocks normal and No sciatic notch tenderness SACROILIAC JOINTS: Yes SI joints normal SACRUM: no tenderness COCCYX: no tenderness Extremity: GENERAL: Yes normal exam except as noted Neuro: COMMON NORMALS: patient oriented x3, moves all extremities, no focal motor deficits, no sensory deficits noted and gait normal SENSORIUM/ORIENTATION: Yes alert MENINGEAL SIGNS: Yes no meningeal signs Skin: COMMON NORMALS: no rashes or lesions noted GENERAL SKIN EXAM: no rashes or lesions noted Course Vital Signs: Vital signs: Vital Signs Temperature 98.3 F 04/25/24 09:44 Pulse Rate 67 04/25/24 09:44 Respiratory Rate 18 04/25/24 09:44 Blood Pressure 125/80 04/25/24 09:44 Pulse Oximetry 99 04/25/24 09:44 Oxygen Delivery Me thod Room Air 04/25/24 09:44 MDM - Abdominal Pain Medical Decision Making Patient's vital signs are stable. Blood work showing a minor white count at 14.6. The remainder of his labs are unremarkable. CT scan showing findings most likely due to acute enterocolitis. Patient is not having any diarrhea or worsening bloody stools apart from his baseline bloody stools that he has had for over a year now. He is scheduled for colonoscopy on 05/08 for further evaluation of this. Return to ED precautions given. Medical Records I reviewed the patient's medical records. Lab Data I reviewed the patient's lab results. 04/25/24 09:50 04/25/24 09:50 Labs/Radiology: Radiology Impressions Abdomen/Pelvis CT 04/25/24 10:02 IMPRESSION: 1. Mild increased fluid in the mid small bowel with wall thickening. No obstructive pattern. Additional mild submucosal edema in a segment of the transverse colon. Findings are most likely due to acute enterocolitis. Consider infectious or inflammatory etiologies. 2. The appendix is normal. 3. There is no ascites. 4. No renal obstruction. Laboratory Results WBC 14.62 10^3/uL (3.29-11.43) H 04/25/24 09:50 RBC 5.19 10^6/uL (3.85-5.65) 04/25/24 09:50 Hgb 16.10 g/dL (11.27-16.99) 04/25/24 09:50 Hct 48.1 % (37-53) 04/25/24 09:50 MCV 92.7 fl (82-101) 04/25/24 09:50 MCH 31.0 pg (27-33) 04/25/24 09:50 MCHC 33.5 g/dL (30-55) 04/25/24 09:50 RDW 12.2 % (12.1-15.1) 04/25/24 09:50 Plt Count 251 10^3/cmm (157-399) 04/25/24 09:50 MPV 10.0 fL (7.4-10.4) 04/25/24 09:50 Neut % (Auto) 75.1 % 04/25/24 09:50 Lymph % (Auto) 17.2 % 04/25/24 09:50 [place] % (Auto) 5.5 % 04/25/24 09:50 Eos % (Auto) 1.4 % 04/25/24 09:50 Baso % (Auto) 0.4 % 04/25/24 09:50 Neut # (Auto) 10.97 10^3/uL (1.8-7.7) H 04/25/24 09:50 Lymph # (Auto) 2.5 10^3/uL (0.8-4.8) 04/25/24 09:50 [place] # (Auto) 0.8 10^3/uL (0.2-0.9) 04/25/24 09:50 Eos # (Auto) 0.2 10^3/uL (0.0-0.8) 04/25/24 09:50 Baso # (Auto) 0.1 10^3/uL (0.0-0.1) 04/25/24 09:50 Nucleated RBC % (auto) 0 % 04/25/24 09:50 Nucleated RBCs # 0.0 /100WBC 04/25/24 09:50 Sodium 138 mmol/L (136-145) 04/25/24 09:50 Potassium 4.6 mmol/L (3.5-5.1) 04/25/24 09:50 Chloride 103 mmol/L (98-107) 04/25/24 09:50 Carbon Dioxide 27 mmol/L (22-29) 04/25/24 09:50 Anion Gap 12.6 (5-19) 04/25/24 09:50 BUN 14 mg/dL (6-20) 04/25/24 09:50 Creatinine 1.0 mg/dL (0.7-1.2) 04/25/24 09:50 GFR Calculation 85.5 mL/min (90-130) L 04/25/24 09:50 Glucose 93 mg/dL (65-115) 04/25/24 09:50 Calculated Osmolality 286 mOsm/kg (285-295) 04/25/24 09:50 Calcium 9.3 mg/dL (8.5-10.5) 04/25/24 09:50 Total Bilirubin 0.2 mg/dL (0.15-1.2) 04/25/24 09:50 AST 15 U/L (0-40) 04/25/24 09:50 ALT 12 U/L (0-41) 04/25/24 09:50 Alkaline Phosphatase 95 U/L (40-130) 04/25/24 09:50 Total Protein 7.0 g/dL (6.6-8.7) 04/25/24 09:50 Albumin 4.5 g/dL (3.5-5.2) 04/25/24 09:50 Globulin 2.5 g/dL (1.3-4.6) 04/25/24 09:50 Urine Color Yellow (Yellow) 04/25/24 11:06 Urine Appearance Clear (CLEAR) 04/25/24 11:06 Urine pH 6.0 (5-7) 04/25/24 11:06 Ur Specific [place] 1.011 (1.005-1.030) 04/25/24 11:06 Urine Protein Negative (Negative) 04/25/24 11:06 Urine Glucose (UA) Negative (Normal) 04/25/24 11:06 Urine Ketones Negative (Negative) 04/25/24 11:06 Urine Blood Negative (Negative) 04/25/24 11:06 Urine Nitrate Negative (Negative) 04/25/24 11:06 Urine Bilirubin Negative (Negative) 04/25/24 11:06 Urine Urobilinogen 0.2 mg/dL (Negative) 04/25/24 11:06 Ur Leukocyte Esterase Negative (Negative) 04/25/24 11:06 Urine RBC 0-2 /hpf (0-2) 04/25/24 11:06 Urine WBC 0-5 /hpf (0-5) 04/25/24 11:06 Ur Squamous Epith Cells 0-5 /hpf (0-5) 04/25/24 11:06 Amorphous Sediment Not Reportable 04/25/24 11:06 Urine Bacteria None seen /hpf (NONE) 04/25/24 11:06 Hyaline Casts 0-4 /lpf H 04/25/24 11:06 All radiology interpretation(s) finalized by discharge Discharge Plan Discharge Patient Disposition: Home Clinical Impression: Enterocolitis Condition: Stable Prescriptions: No Action No Known Home Medications Discharge Orders: Discharge ED (Routine); Ordered 04/25/24 Ordered By: Alis Padgett Activity Restrictions/Additional Instructions: As we discussed, I would like you to do a bland liquid/soft food diet and advance as tolerated. You may return to the emergency department for worsening abdominal pain, fevers, repetitive episodes of diarrhea or vomiting, worsening blood in your stool, generally feeling worse or unwell, or any other concerns you may have. Coding Level of Care Code ED Capital Campaign Fundraiser for Eric Mariano
[2024-04-25 10:08] LABS: Basophils # 0.1 10^3/uL (0.0-0.1); Basophils % 0.4 %; Eosinophils # 0.2 10^3/uL (0.0-0.8); Eosinophils % 1.4 %; Hematocrit 48.1 % (37-53); Lymphocytes # 2.5 10^3/uL (0.8-4.8); Lymphocytes % 17.2 %; Mean Corpuscular HGB Conc 33.5 g/dL (30-55); Mean Corpuscular Volume 92.7 fl (82-101); Monocytes # 0.8 10^3/uL (0.2-0.9); Monocytes % 5.5 %; Neutrophils # 10.97 10^3/uL (1.8-7.7); Neutrophils % 75.1 %; Nucleated Red Blood Cells % 0 %; Platelet Count 251 10^3/cmm (157-399); Red Blood Count 5.19 10^6/uL (3.85-5.65); Red Cell Distribution Width 12.2 % (12.1-15.1); White Blood Count 14.62 10^3/uL (3.29-11.43)
[2024-04-25 10:34] LABS: Alanine Aminotransferase 12 U/L (0-41); Albumin Level 4.5 g/dL (3.5-5.2); Alkaline Phosphatase 95 U/L (40-130); Anion Gap 12.6 (5-19); Aspartate Amino Transferase 15 U/L (0-40); Blood Urea Nitrogen 14 mg/dL (6-20); Calcium 9.3 mg/dL (8.5-10.5); Carbon Dioxide 27 mmol/L (22-29); Chloride 103 mmol/L (98-107); Creatinine Clr Calc Pharmacy 86.8125; Globulin 2.5 g/dL (1.3-4.6); Glomerular Filtration Rate 85.5 mL/min (90-130); Glucose 93 mg/dL (65-115); Osmolality Calculated 286 mOsm/kg (285-295); Potassium 4.6 mmol/L (3.5-5.1); Sodium 138 mmol/L (136-145); Total Bilirubin 0.2 mg/dL (0.15-1.2)
[2024-04-25] MEDS: iohexol 350 mg/mL 500 mL Btl (per mL) IV (11:01)
[2024-04-25 11:18] LABS: Bilirubin Urine Negative (Negative); Blood Urine Negative (Negative); Glucose Urine UA Negative (Normal); Ketones Urine Negative (Negative); Leukocyte Esterase Urine Negative (Negative); Nitrate Urine Negative (Negative); Protein Urine Negative (Negative); Specific Gravity, Urine 1.011 (1.005-1.030); Urine Appearance Clear (CLEAR); Urine Color Yellow (Yellow); Urobilinogen Urine 0.2 mg/dL (Negative)
[2024-04-25 11:24] LABS: Add Urine Microscopic? YES; Bacteria Urine None Seen /hpf; Hyaline Casts Urine 0-4 /lpf; RBC Urine 0-2 /hpf (0-2); Squamous Epithelial Cell Urine 0-5 /hpf (0-5); WBC Urine 0-5 /hpf (0-5)
[2024-04-25 11:45] VITALS: BP 131/70; PULSE 51; O2SAT 99
[2024-04-25 11:50] VITALS: BP 136/79; PULSE 52; O2SAT 99
== END 2024-04-25 11:53 | disposition home or self-care (01) ==
PROVIDERS: Family Medicine; Emergency Provider Physician Assistant
DX: K52.9 Noninfective gastroenteritis and colitis, unspecified (principal); F17.210 Nicotine dependence, cigarettes, uncomplicated
CPT/HCPCS: 36415; 74177; 80053; 81001; 85025; 99285

== ENCOUNTER 2024-05-08 08:11 | Day surgery (SDC) | payer MEDICAID, SELFPAY ==
[2024-05-08 08:35] VITALS: BP 113/82; PULSE 68; RESP 16; TEMP 36.3; O2SAT 99; BMI 17.4
[2024-05-08] MEDS: sodium chloride 0.9% 1,000 ML 30 ML IV (08:45)
--- NOTE | 2024-05-08 09:18 | ANES.PREANE2 ---
Pre-Anesthetic Assessment Height/Weight: Height 1.8 m Weight 56.699 kg Temp Pulse Resp BP Pulse Ox O2 Del Method 97.4 F L 68 16 113/82 99 Room Air 05/08/24 08:35 05/08/24 08:35 05/08/24 08:35 05/08/24 08:35 05/08/24 08:35 05/08/24 08:35 Preop Diagnosis: Hematochezia Operation Date: 05/08/24 09:30 Proposed Procedures p Colonoscopy 02054, G0105, K92.1(Not Applicable) - Zechariah Mazariegos MD Familial anesthetic complications: none Was Beta Molly taken within 24 hours: N/A Was Clonidine taken within 24 hours: N/A Last intake: Intake Last Liquid Date 05/07/24 Last Liquid Time 23:30 Last Solid Date 05/06/24 Last Solid Time 21:00 Social Tobacco and No alcohol Marijuana use also every now and then Exam alert, oriented x 3, clear to auscultation bilaterally and regular rate & rhythm Airway Submandibular: within normal limits Cervical ROM: within normal limits Mallampati: Class II Comments: Comments: no teeth on upper and lower visble decay poor denti Medications/Allergies Home Medications Medication Instructions Recorded Confirmed Last Taken Type cephalexin 500 mg capsule 500 mg PO Q8H 7 days #21 caps 05/05/24 05/08/24 05/07/24 Rx Allergies Allergy/AdvReac Type Severity Reaction Status Date / Time tramadol Allergy Severe Siezures Verified 05/05/24 11:46 Current Medications Generic Name Dose Route Start Last Admin Trade Name Freq PRN Reason Stop Dose Admin Sodium Chloride 1,000 mls @ 30 mls/hr 05/08/24 08:30 05/08/24 08:45 Sodium Chloride 0.9% IV 05/09/24 08:29 30 mls/hr .Q24H JEFF Administration PFSH Anesthesia Medical History Anxiety disorder, unspecified Surgical History No pertinent past surgical history Family History Mother Cancer unknown Grandfather Cancer Heart disease Father Diabetes Social History Smoking and tobacco/nicotine status: current every day tobacco/nicotine user cigarettes Alcohol intake: never Data Anesthesia Cardiac Studies: No Data to Display
--- NOTE | 2024-05-08 09:23 | W.PM.OPSUD ---
Surgery/Procedure H&P Update DATE OF PROCEDURE: May 08, 2024 DATE H&P PERFORMED: 05/05/24 H&P UPDATE INFORMATION: I have reviewed H&P completed within last 30 days, I have examined patient prior to procedure and No changes to prior documentation PREOP DIAGNOSIS: Hematochezia PLANNED PROCEDURE: Operation Date: 05/08/24 09:30 Proposed Procedures p Colonoscopy 85673, G0105, K92.1(Not Applicable) - Zechariah Mazariegos MD
--- NOTE | 2024-05-08 09:24 | W.PM.OPSFHP ---
Same Day Surgery H&P Indication for Procedure/HPI DATE OF PROCEDURE: May 08, 2024 CHIEF COMPLAINT/INDICATIONFOR SURGICAL PROCEDURE: hematochezia PREOP DIAGNOSIS: Hematochezia PLANNED PROCEDURE: Operation Date: 05/08/24 09:30 Proposed Procedures p Colonoscopy 56500, G0105, K92.1(Not Applicable) - Zechariah Mazariegos MD Medications/Allergies* Allergies/Adverse Reactions Allergy/AdvReac Type Severity Reaction Status Date / Time tramadol Allergy Severe Siezures Verified 05/05/24 11:46 Current Medications: Generic Name Dose Route Start Last Admin Trade Name Freq PRN Reason Stop Dose Admin Sodium Chloride 1,000 mls @ 30 mls/hr 05/08/24 08:30 05/08/24 08:45 Sodium Chloride 0.9% IV 05/09/24 08:29 30 mls/hr .Q24H JEFF Administration Pertinent History/Comorbid Conditions* Medical History (Updated 05/03/24 @ 00:01 by MARCY Doe) Anxiety disorder, unspecified Surgical History (Updated 01/09/23 @ 01:34 by MARLO Villalta) No pertinent past surgical history Family History (Updated 03/24/24 @ 10:42 by VINNIE Encarnacion) Diabetes Father Heart disease Grandfather Cancer Mother unknown Grandfather Social History Smoking and tobacco/nicotine status: current every day tobacco/nicotine user cigarettes Alcohol intake: never Pertinent Exam Findings alert, oriented x 3, clear to auscultation bilaterally, regular rate & rhythm and procedure specific exam findings abdome soft, nt, nd Recommendations Surgery/Procedure today Other Plans: Proceed with endoscopy Coding Level of Care Code Acute Code for Eric Mariano
[2024-05-08 10:15] VITALS: BP 104/70; PULSE 70; RESP 20; TEMP 36.1; O2SAT 96
[2024-05-08 10:45] VITALS: BP 129/85; PULSE 57; RESP 17; O2SAT 98
[2024-05-08 11:08] VITALS: BP 121/91; PULSE 67; RESP 16; O2SAT 99
--- NOTE | 2024-05-08 11:09 | ANE.PACU2 ---
Inpatient post-anesthesia follow up: Airway intact: Yes Vital signs: Temperature 97.0 F Pulse Rate 67 Respiratory Rate 16 Blood Pressure 121/91 Pulse Oximetry 99 Oxygen Delivery Me thod Room Air Oxygen Flow Rate Fraction of Inspir ed Oxygen Hydration adequate: Yes Nausea and vomiting: No Pain level: 1 Mental status: Baseline
== END 2024-05-08 11:09 | disposition home or self-care (01) ==
PROVIDERS: Visit Provider Student in an Organized Health Care Education/Training Program
PROC: 0DJD8ZZ Inspection of Lower Intestinal Tract, Via Natural or Artificial Opening Endoscopic (ICD-10-PCS; CPT 45378; principal; 2024-05-08 09:30)
DX: K92.1 Melena (principal); D12.2 Benign neoplasm of ascending colon; F41.9 Anxiety disorder, unspecified; F17.210 Nicotine dependence, cigarettes, uncomplicated; K57.30 Diverticulosis of large intestine without perforation or abscess without bleeding
CPT/HCPCS: 45380; 45385; 88305; J2704; J7030

== ENCOUNTER 2025-05-23 07:22 | Outpatient (CLI) | payer MEDICAID, SELFPAY ==
--- NOTE | 2025-05-23 07:43 | NM_ITS ---
WS: [id number] NUCLEAR MEDICINE HIDA SCAN WITH GALLBLADDER EJECTION FRACTION HISTORY: RUQ PAIN COMPARISON: Ultrasound 05/01/2025 TECHNIQUE: The patient was intravenously injected with 7.8 mCi of TC99m Mebrofenin. Immediate imaging over the right upper quadrant was followed by 5 minute image and additional images for a total of 60 minutes. Normal uptake of radiotracer throughout the liver. Activity identified in the gallbladder at 15 minutes and well distended by 60 minutes. Activity in the proximal small bowel was seen by 50 minutes. Good washout of the radiotracer from the liver by 60 minutes. The patient then drank 8 ounces of Ensure Plus. Ejection fraction at 60 minutes was 72%. Normal GB ejection fraction is 35-75%. Post fatty meal symptoms: None. NM/NM hepatobiliary w phar* [id number] IMPRESSION: 1. Normal HIDA scan. 2. Normal gallbladder ejection fraction.
== END 2025-05-23 07:23 | disposition home or self-care (01) ==
LOC: RAD 07:26
PROVIDERS: PCP Family Medicine; Visit Provider Family Medicine
DX: R10.11 Right upper quadrant pain (principal)
CPT/HCPCS: 78227; A9537